=== PATIENT | male | born 1995 | race Caucasian/White ===

== ENCOUNTER 2018-02-01 17:09 | Emergency (ER) | payer MEDICAID, OTHER ==
[~2018-02-01] VITALS: Ht 175.3 cm; Wt 70.7 kg
[2018-02-01 18:35] VITALS: BP 109/61
== END 2018-02-01 18:54 | disposition home or self-care (01) ==
LOC: ED 18:48
DX: S00.93XA Contusion of unspecified part of head, initial encounter (principal); W22.8XXA Striking against or struck by other objects, initial encounter; Y93.89 Activity, other specified; Y99.8 Other external cause status; Y92.009 Unspecified place in unspecified non-institutional (private) residence as the place of occurrence of the external cause
CPT/HCPCS: 99281